=== PATIENT | female | born 1985 | race Caucasian/White ===

== ENCOUNTER 2022-11-29 14:29 | Inpatient (IN) | payer OTHER ==
[~2022-11-29] VITALS: Ht 162.6 cm; Wt 53.1 kg
== END 2022-12-06 12:15 | disposition home or self-care (01) | DRG 743 ==
LOC: O/R 12-04 05:10 → OB/GYN 12-04 05:10 → SURG 12-04 07:00 → OB/GYN 12-04 11:28
PROVIDERS: ADMIT Obstetrics & Gynecology; ATTEND Obstetrics & Gynecology
PROC: 0UB90ZZ Excision of Uterus, Open Approach (ICD-10-PCS; principal; 2022-12-04 07:00)
DX: D25.9 Leiomyoma of uterus, unspecified (principal); Z20.822 Contact with and (suspected) exposure to COVID-19; N83.291 Other ovarian cyst, right side; N83.292 Other ovarian cyst, left side; N73.6 Female pelvic peritoneal adhesions (postinfective)